=== PATIENT | male | born 1935 | race Caucasian/White ===

== ENCOUNTER 2018-10-02 22:59 | Inpatient (IN) | payer MEDICARE, OTHER ==
[~2018-10-02] VITALS: Ht 175.3 cm; Wt 84.2 kg
[2018-10-03] MEDS ORDERED: ONDANSETRON 4 MG INJ IV STA (00:23)
[2018-10-03] MEDS ORDERED: morphine 4 MG/ML VIAL IV STA (00:23)
[2018-10-03] MEDS ORDERED: SOD CHLORIDE 0.9% 500 ML IV STA (00:23)
[2018-10-03] MEDS ORDERED: CIPROFLOXACIN 400MG/D5W 200 ML IVPB STA (03:20)
[2018-10-03] MEDS ORDERED: metroNIDAZOLE 500 MG/NS (PMX) 100 ML IVPB STA (03:20)
--- NOTE | 2018-10-03 03:30 | ERD ---
ER Documentation Chief Complaint Chief Complaint VOMITING, DIARRHEA X'S 1 DAY HPI This is a very pleasant 83-year-old gentleman who had sudden onset of nausea vomiting and diarrhea that started noon. At first it was mainly diarrhea 4-5 episodes nonbloody. Then he started developing vomiting which is admitted with some blood streaks in it. No fevers no chills. No other current complaints. ROS All systems reviewed and are negative except as per history of present illness. Allergies Allergies: Coded Allergies: No Known Allergy (Unverified , 10/02/18) PMhx/Soc History of Surgery: No Anesthesia Reaction: No Hx Neurological Disorder: No Hx Respiratory Disorders: No Hx Cardiac Disorders: Yes (HTN) Hx Psychiatric Problems: No Hx Miscellaneous Medical Probl: No Hx Alcohol Use: No Hx Substance Use: No Hx Tobacco Use: No Smoking Status: Never smoker Physical Exam Vitals Vital Signs Date Temp Pulse Resp B/P (MAP) Pulse Ox O2 O2 Flow FiO2 Time Delivery Rate 10/03/18 86 14 118/54 96 Nasal 01:28 (75) Cannula 10/03/18 98.5 74 18 125/67 99 Room Air 00:36 (86) 10/02/18 97.4 79 18 143/97 94 23:09 (112) Physical Exam Const: No acute distress Head: Atraumatic Eyes: Normal Conjunctiva ENT: Normal External Ears, Nose and Mouth. Neck: Full range of motion. No meningismus. Resp: Clear to auscultation bilaterally Cardio: Regular rate and rhythm, no murmurs Abd: Soft, non tender, non distended. Normal bowel sounds Skin: No petechiae or rashes Back: No midline or flank tenderness Ext: No cyanosis, or edema Neur: Awake and alert Psych: Normal Mood and Affect Result Diagram: 10/03/18 0043 10/03/18 0043 Results 24 hrs Laboratory Tests Test 10/03/18 00:43 White Blood Count 19.8 10^3/ul Red Blood Count 4.36 10^6/ul Hemoglobin 14.0 g/dl Hematocrit 44.9 % Mean Corpuscular Volume 103.0 fl Mean Corpuscular Hemoglobin 32.1 pg Mean Corpuscular Hemoglobin Concent 31.2 g/dl Red Cell Distribution Width 13.8 % Platelet Count 191 10^3/UL Mean Platelet Volume 11.7 fl Immature Granulocytes % 0.400 % Neutrophils % 88.2 % Lymphocytes % 7.9 % Monocytes % 2.7 % Eosinophils % 0.5 % Basophils % 0.3 % Nucleated Red Blood Cells % 0.0 /100WBC Immature Granulocytes # 0.080 10^3/ul Neutrophils # 17.4 10^3/ul Lymphocytes # 1.6 10^3/ul Monocytes # 0.5 10^3/ul Eosinophils # 0.1 10^3/ul Basophils # 0.1 10^3/ul Nucleated Red Blood Cells # 0.0 10^3/ul Urine Color YELLOW Urine Clarity CLOUDY Urine pH 5.0 Urine Specific [place] 1.020 Urine Ketones NEGATIVE mg/dL Urine Nitrite NEGATIVE mg/dL Urine Bilirubin NEGATIVE mg/dL Urine Urobilinogen NEGATIVE mg/dL Urine Leukocyte Esterase NEGATIVE Louie/ul Urine Microscopic RBC 3 /HPF Urine Microscopic WBC 4 /HPF Urine Mucus FEW /HPF Urine Hemoglobin NEGATIVE mg/dL Urine Glucose NEGATIVE mg/dL Urine Total Protein 1+ mg/dl Sodium Level 144 mmol/L Potassium Level 4.3 mmol/L Chloride Level 107 mmol/L Carbon Dioxide Level 27 mmol/L Anion Gap 10 Blood Urea Nitrogen 28 mg/dl Creatinine 1.36 mg/dl Est Glomerular Filtrat Rate mL/min mL/min Glucose Level 145 mg/dl Calcium Level 9.9 mg/dl Total Bilirubin 0.6 mg/dl Direct Bilirubin 0.00 mg/dl Indirect Bilirubin 0.6 mg/dl Aspartate Amino Transf (AST/SGOT) 31 IU/L Alanine Aminotransferase (ALT/SGPT) 28 IU/L Alkaline Phosphatase 91 IU/L Troponin I < 0.012 ng/ml Total Protein 7.1 g/dl Albumin 4.3 g/dl Globulin 2.80 g/dl Albumin/Globulin Ratio 1.53 Lipase 37 U/L Current Medications Medications Dose Sig/[place] Start Time Status Last (Trade) Ordered Route PRN Stop Time Admin Dose Reason Admin Sodium 500 ml @ Q1H STAT 10/03/18 DC 10/03/18 Chloride 500 mls/hr IV 00:23 10/03/18 00:30 01:22 Morphine 4 mg ONCE STAT 10/03/18 DC 10/03/18 Sulfate IV 00:23 10/03/18 00:32 (morphine) 00:24 Ondansetron 4 mg ONCE STAT 10/03/18 DC 5/8/19 HCl (Zofran IV 00:23 10/03/18 00:32 Inj) 00:24 100 ml @ ONCE STAT 10/03/18 Metronidazole 100 mls/hr IVPB 03:20 10/03/18 04:19 200 ml @ ONCE STAT 10/03/18 Ciprofloxacin 200 mls/hr IVPB 03:20 10/03/18 / Dextrose 04:19 Procedures/MDM EKG: Rate/Rhythm: [Normal Sinus Rhythm] QRS, ST, T-waves: [No changes consistent w/ acute ischemia] Impression: [No evidence of ischemia or arrhythmia] Chest X-ray 1V Interpreted by me: Soft Tissue: No acute abnormalities Bones: No acute abnormalities Mediastinum/Cardiac Silhouette/Lungs: [No acute abnormalities] Medical decision making: This is an 83-year-old male comes in with complaints of nausea vomiting diarrhea. He has elevation of his white count. He likely has early diverticulitis. Given this is been started on intravenous Cipro and Flagyl. Patient will be admitted to hospitalist who kindly accepts patient to service. Departure Diagnosis: Primary Impression: Nausea, vomiting, and diarrhea Condition: Serious MOI ZURITA October 03, 2018 03:30
[2018-10-03] MEDS ORDERED: PARO-37 PO (03:50)
[2018-10-03] MEDS ORDERED: CLOP75TA28 PO (03:50)
[2018-10-03] MEDS ORDERED: ALLO300T2 PO (03:50)
[2018-10-03] MEDS ORDERED: POTA10TA18 PO (03:50)
[2018-10-03] MEDS ORDERED: DICL75TA2 PO (03:50)
[2018-10-03] MEDS ORDERED: ATOR10TA65 PO (03:50)
[2018-10-03] MEDS ORDERED: METO200T49 PO (03:50)
[2018-10-03] MEDS ORDERED: AMLO-356 PO (03:50)
[2018-10-03] MEDS ORDERED: TAMS-14 PO (03:50)
[2018-10-03] MEDS ORDERED: PANT40TA4 PO (03:50)
[2018-10-03] MEDS ORDERED: ACETAMINOPHEN 325 MG TAB PO PRN (06:00)
[2018-10-03] MEDS ORDERED: ALBUTEROL/IPRATROPIUM (NEB) 3 ML AMP HHN PRN (06:00)
[2018-10-03] MEDS ORDERED: ONDANSETRON 4 MG INJ IV PRN ×2 (06:00→14:30)
[2018-10-03] MEDS ORDERED: morphine 2 MG INJ IV PRN (06:00)
[2018-10-03] MEDS ORDERED: NACL 0.9% 3 ML SYG IV SCH (06:00)
[2018-10-03 06:30] VITALS: BP 109/53; PULSE 70; RESP 18
[2018-10-03 07:25] VITALS: BP 105/53; PULSE 63; RESP 18
--- NOTE | 2018-10-03 08:31 | HP ---
Date/Time of Note Date/Time of Note DATE: 10/03/18 TIME: 08:27 Assessment/Plan VTE Prophylaxis SCD applied (from Nsg): Yes Pharmacological prophylaxis: NA/contraindicated Pharm contraindication: other (Questionable hematemesis) Lines/Catheters IV Catheter Type (from Nrsg): Saline Lock Assessment/Plan Assessment/Plan 1. Gastroenteritis versus colitis/diverticulitis -Keep n.p.o. with IV fluid -Empiric IV antibiotic -Pain management 2. Presumed AMANUEL: Likely from diarrhea and vomiting -NS IVF for now 3. History of prostate surgery: Continue Flomax 4. Dyslipidemia: Continue statin when no longer n.p.o. 5. History of gout: Continue allopurinol when no longer n.p.o. Result Diagram: 10/03/184210/03/183 Results 24hrs Laboratory Tests Test 10/03/18 00:43 White Blood Count 19.8 H Red Blood Count 4.36 L Hemoglobin 14.0 Hematocrit 44.9 Mean Corpuscular Volume 103.0 H Mean Corpuscular Hemoglobin 32.1 Mean Corpuscular Hemoglobin Concent 31.2 L Red Cell Distribution Width 13.8 Platelet Count 191 Mean Platelet Volume 11.7 H Immature Granulocytes % 0.400 Neutrophils % 88.2 H Lymphocytes % 7.9 L Monocytes % 2.7 Eosinophils % 0.5 Basophils % 0.3 Nucleated Red Blood Cells % 0.0 Immature Granulocytes # 0.080 H Neutrophils # 17.4 H Lymphocytes # 1.6 Monocytes # 0.5 Eosinophils # 0.1 Basophils # 0.1 Nucleated Red Blood Cells # 0.0 Urine Color YELLOW Urine Clarity CLOUDY A Urine pH 5.0 Urine Specific [place] 1.020 Urine Ketones NEGATIVE Urine Nitrite NEGATIVE Urine Bilirubin NEGATIVE Urine Urobilinogen NEGATIVE Urine Leukocyte Esterase NEGATIVE Urine Microscopic RBC 3 Urine Microscopic WBC 4 Urine Mucus FEW A Urine Hemoglobin NEGATIVE Urine Glucose NEGATIVE Urine Total Protein 1+ H Sodium Level 144 Potassium Level 4.3 Chloride Level 107 Carbon Dioxide Level 27 Anion Gap 10 Blood Urea Nitrogen 28 H Creatinine 1.36 H Est Glomerular Filtrat Rate mL/min Glucose Level 145 Calcium Level 9.9 Total Bilirubin 0.6 Direct Bilirubin 0.00 Indirect Bilirubin 0.6 Aspartate Amino Transf (AST/SGOT) 31 Alanine Aminotransferase (ALT/SGPT) 28 Alkaline Phosphatase 91 Troponin I < 0.012 Total Protein 7.1 Albumin 4.3 Globulin 2.80 Albumin/Globulin Ratio 1.53 Lipase 37 HPI/ROS Admit Date/Time Admit Date/Time October 03, 2018 at 03:21 Hx of Present Illness Patient is an 83-year-old male with a history of hypertension, dyslipidemia, prostate surgery, gout who presents the ER complaining of abdominal pain and diarrhea. Pain is mainly localized in the epigastric area and the diarrhea is described as watery and nonbloody. He also reported generalized weakness. In the ER, vitals were stable. WBC almost 20,000. CT abdomen pelvis shows the followin. Possible mild emphysema. 2. Multiple clips and metallic densities are seen in the prostate base and bladder base. Question prior prostate cancer treatment. The prostate is somewhat enlarged with a course left paracentral calcification within. The urinary bladder wall is mildly prominent which may be due to under-distension. 3. Colonic diverticulosis without evidence of diverticulitis. No evidence for small bowel obstruction, free air, or abscess. PMH/Family/Social Past Medical History Medical History: other (See HPI) Medications Current Medications Dextrose/Sodium Chloride 1,000 ml @ 100 mls/hr Q10H IV ; Start 10/03/18 at 05:37 IV Flush (NS 3 ml) 3 ml PER PROTOCOL IV ; Start 10/03/18 at 06:00 Ondansetron HCl (Zofran Inj) 4 mg Q6H PRN IV NAUSEA/VOMITING; Start 10/03/18 at 06:00 Acetaminophen (Tylenol Tab) 650 mg Q6H PRN PO .PAIN 1-3 OR TEMP; Start 10/03/18 at 06:00 Morphine Sulfate (morphine) 2 mg Q4H PRN IV .SEVERE PAIN 7-10; Start 10/03/18 at 06:00 Famotidine (Pepcid Iv) 20 mg Q12 IV ; Start 10/03/18 at 09:00 Albuterol/ Ipratropium (Duoneb) 3 ml Q2H RESP THERAPY PRN HHN SHORTNESS OF YULISSA TH; Start 10/03/18 at 06:00 Tamsulosin HCl (Flomax) 0.4 mg QHS PO ; Start 10/03/18 at 21:00 Coded Allergies: No Known Allergy (Unverified , 10/02/18) Past Surgical History Past Surgical Hx: other (See HPI) Family History Significant Family History: no pertinent family hx Social History Alcohol Use: none Smoking Status: Never smoker Drug Use: none Exam/Review of Systems Vital Signs Vitals Vital Signs Date Temp Pulse Resp B/P (MAP) Pulse Ox O2 O2 Flow FiO2 Time Delivery Rate 10/03/18 98.2 63 18 105/53 96 07:25 (70) 10/03/18 Nasal 06:28 Cannula 10/03/18 2.0 04:00 Exam Constitutional: other (No acute distress) Head: normocephalic, atraumatic Eyes: EOMI Respiratory: clear to auscultation, normal air movement Cardiovascular: regular rate and rhythm, nl pulses Gastrointestinal: soft, non-tender Extremities: normal pulses MOI CONTRERAS MD October 03, 2018 08:31
[2018-10-03] MEDS: FAMOTIDINE 20 MG INJ IV SCH ×2 (08:43→20:13)
[2018-10-03] MEDS: DEXTROSE 5%-0.45% NACL 1,000 ML IV SCH ×2 (08:46→15:37)
[2018-10-03] MEDS: PIPER-TAZO 3.375 GM IV (PMX) 100 ML IVPB SCH ×2 (10:36→18:57)
[2018-10-03 13:27] VITALS: BP 116/56; PULSE 90; RESP 18
[2018-10-03] MEDS ORDERED: ALBUTEROL 0.083% (NEB) 2.5 MG/3 ML AMP HHN PRN (14:30)
[2018-10-03] MEDS ORDERED: PHENOL 1.4% SOLN 180 ML BTL MT PRN (14:30)
[2018-10-03] MEDS ORDERED: DIPHENHYDRAMINE 50 MG INJ IV PRN (14:30)
--- NOTE | 2018-10-03 15:51 | PN ---
Date/Time of Note Date/Time of Note DATE: 10/03/18 TIME: 15:48 Assessment/Plan VTE Prophylaxis SCD applied (from Nsg): Yes SCD contraindicated: low risk/ambulating Pharmacological prophylaxis: LMWH Lines/Catheters IV Catheter Type (from Nrsg): Peripheral IV Assessment/Plan Hospital Course A/P 1. Gastroenteritis/food poisoning vs diverticulitis, stable, try diet/antibiotics. 2. Chronic diverticulosis 3. Chronic cad/ age undetermined injury? Continue risk factor modification 4. Dyslipidemia 5. BPH? History of surgery stent placement 6. Gout 7. Emphysema? 8. Ho nephrolithiasis Subjective: Feels better. No further abdominal pain diarrhea. States he had some coleslaw that tasted funny recently. He is avoiding nuts and seeds. Past colonoscopies have shown diverticulosis. Objective: Vital signs stable Physical exam No pallor icterus adenopathy Regular Clear Bs+ nt nd no RRG No edema Result Diagram: 10/03/1815 10/03/18 0915 Results 24hrs Laboratory Tests Test 10/03/18 00:43 10/03/18 09:15 White Blood Count 19.8 H 14.6 #H Red Blood Count 4.36 L 3.63 L Hemoglobin 14.0 11.7 L Hematocrit 44.9 36.9 L Mean Corpuscular Volume 103.0 H 101.7 H Mean Corpuscular Hemoglobin 32.1 32.2 Mean Corpuscular Hemoglobin Concent 31.2 L 31.7 L Red Cell Distribution Width 13.8 14.1 Platelet Count 191 167 Mean Platelet Volume 11.7 H 11.2 H Immature Granulocytes % 0.400 0.300 Neutrophils % 88.2 H 81.5 H Lymphocytes % 7.9 L 9.8 L Monocytes % 2.7 8.2 Eosinophils % 0.5 0.1 Basophils % 0.3 0.1 Nucleated Red Blood Cells % 0.0 0.0 Immature Granulocytes # 0.080 H 0.050 H Neutrophils # 17.4 H 11.9 H Lymphocytes # 1.6 1.4 Monocytes # 0.5 1.2 H Eosinophils # 0.1 0.0 Basophils # 0.1 0.0 Nucleated Red Blood Cells # 0.0 0.0 Urine Color YELLOW Urine Clarity CLOUDY A Urine pH 5.0 Urine Specific [place] 1.020 Urine Ketones NEGATIVE Urine Nitrite NEGATIVE Urine Bilirubin NEGATIVE Urine Urobilinogen NEGATIVE Urine Leukocyte Esterase NEGATIVE Urine Microscopic RBC 3 Urine Microscopic WBC 4 Urine Mucus FEW A Urine Hemoglobin NEGATIVE Urine Glucose NEGATIVE Urine Total Protein 1+ H Sodium Level 144 144 Potassium Level 4.3 4.9 Chloride Level 107 111 H Carbon Dioxide Level 27 27 Anion Gap 10 6 Blood Urea Nitrogen 28 H 31 H Creatinine 1.36 H 1.22 Est Glomerular Filtrat Rate mL/min Glucose Level 145 117 Calcium Level 9.9 8.7 Total Bilirubin 0.6 0.6 Direct Bilirubin 0.00 0.00 Indirect Bilirubin 0.6 0.6 Aspartate Amino Transf (AST/SGOT) 31 32 Alanine Aminotransferase (ALT/SGPT) 28 30 Alkaline Phosphatase 91 71 Troponin I < 0.012 Total Protein 7.1 6.0 #L Albumin 4.3 3.3 # Globulin 2.80 2.70 Albumin/Globulin Ratio 1.53 1.22 Lipase 37 Exam/Review of Systems Exam Vitals Vital Signs Date Temp Pulse Resp B/P (MAP) Pulse Ox O2 O2 Flow FiO2 Time Delivery Rate 10/03/18 98.8 90 18 116/56 92 13:27 (76) 10/03/18 Nasal 06:28 Cannula 10/03/18 2.0 04:00 Results Results 24hrs Laboratory Tests Test 10/03/18 00:43 10/03/18 09:15 White Blood Count 19.8 H 14.6 #H Red Blood Count 4.36 L 3.63 L Hemoglobin 14.0 11.7 L Hematocrit 44.9 36.9 L Mean Corpuscular Volume 103.0 H 101.7 H Mean Corpuscular Hemoglobin 32.1 32.2 Mean Corpuscular Hemoglobin Concent 31.2 L 31.7 L Red Cell Distribution Width 13.8 14.1 Platelet Count 191 167 Mean Platelet Volume 11.7 H 11.2 H Immature Granulocytes % 0.400 0.300 Neutrophils % 88.2 H 81.5 H Lymphocytes % 7.9 L 9.8 L Monocytes % 2.7 8.2 Eosinophils % 0.5 0.1 Basophils % 0.3 0.1 Nucleated Red Blood Cells % 0.0 0.0 Immature Granulocytes # 0.080 H 0.050 H Neutrophils # 17.4 H 11.9 H Lymphocytes # 1.6 1.4 Monocytes # 0.5 1.2 H Eosinophils # 0.1 0.0 Basophils # 0.1 0.0 Nucleated Red Blood Cells # 0.0 0.0 Urine Color YELLOW Urine Clarity CLOUDY A Urine pH 5.0 Urine Specific [place] 1.020 Urine Ketones NEGATIVE Urine Nitrite NEGATIVE Urine Bilirubin NEGATIVE Urine Urobilinogen NEGATIVE Urine Leukocyte Esterase NEGATIVE Urine Microscopic RBC 3 Urine Microscopic WBC 4 Urine Mucus FEW A Urine Hemoglobin NEGATIVE Urine Glucose NEGATIVE Urine Total Protein 1+ H Sodium Level 144 144 Potassium Level 4.3 4.9 Chloride Level 107 111 H Carbon Dioxide Level 27 27 Anion Gap 10 6 Blood Urea Nitrogen 28 H 31 H Creatinine 1.36 H 1.22 Est Glomerular Filtrat Rate mL/min Glucose Level 145 117 Calcium Level 9.9 8.7 Total Bilirubin 0.6 0.6 Direct Bilirubin 0.00 0.00 Indirect Bilirubin 0.6 0.6 Aspartate Amino Transf (AST/SGOT) 31 32 Alanine Aminotransferase (ALT/SGPT) 28 30 Alkaline Phosphatase 91 71 Troponin I < 0.012 Total Protein 7.1 6.0 #L Albumin 4.3 3.3 # Globulin 2.80 2.70 Albumin/Globulin Ratio 1.53 1.22 Lipase 37 Medications Medication Current Medications Dextrose/Sodium Chloride 1,000 ml @ 100 mls/hr Q10H IV Last administered on 10/03/18at 08:46; Admin Dose 100 MLS/HR; Start 10/03/18 at 05:37 IV Flush (NS 3 ml) 3 ml PER PROTOCOL IV ; Start 10/03/18 at 06:00 Acetaminophen (Tylenol Tab) 650 mg Q6H PRN PO .PAIN 1-3 OR TEMP; Start 10/03/18 at 06:00 Morphine Sulfate (morphine) 2 mg Q4H PRN IV .SEVERE PAIN 7-10; Start 10/03/18 at 06:00 Famotidine (Pepcid Iv) 20 mg Q12 IV Last administered on 10/03/18at 08:43; Admin Dose 20 MG; Start 10/03/18 at 09:00 Albuterol/ Ipratropium (Duoneb) 3 ml Q2H RESP THERAPY PRN HHN SHORTNESS OF BREATH; Start 10/03/18 at 06:00 Tamsulosin HCl (Flomax) 0.4 mg QHS PO ; Start 10/03/18 at 21:00 Piperacillin Sod/ Tazobactam Sod 100 ml @ 25 mls/hr TID@02,10,18 IVPB Last administered on 10/03/18at 10:36; Admin Dose 25 MLS/HR; Start 10/03/18 at 10:00 Phenol (Chloraseptic Throat [place]) 2 spray Q2H PRN MT SORE THROAT; Start 10/03/18 at 14:30 Diphenhydramine HCl (Benadryl) 25 mg Q6H PRN IV ITCHING Last administered on 10/03/18at 14:26; Admin Dose 25 MG; Start 10/03/18 at 14:30 Ondansetron HCl (Zofran Inj) 4 mg Q4 PRN IV NAUSEA/VOMITING; Start 10/03/18 at 14:30 Enoxaparin Sodium (Lovenox) 30 mg DAILY SC ; Start 10/04/18 at 09:00 Albuterol (Proventil 0.083% (Neb)) 1.25 mg Q2H RESP THERAPY PRN HHN WHEEZING AND RESP DISTRESS; Start 10/03/18 at 14:30 GEGE JORDAN MD October 03, 2018 15:51
[2018-10-03 18:47] VITALS: Ht 175.3 cm; Wt 84.2 kg
[2018-10-03 19:18] VITALS: BP 126/60; PULSE 85; RESP 18
[2018-10-03] MEDS ORDERED: TAMSULOSIN (SR) 0.4 MG CAP PO SCH (21:00)
[2018-10-04] MEDS: DEXTROSE 5%-0.45% NACL 1,000 ML IV SCH ×2 (01:37→01:55)
[2018-10-04] MEDS: PIPER-TAZO 3.375 GM IV (PMX) 100 ML IVPB SCH (01:54)
[2018-10-04 02:07] VITALS: BP 124/64; PULSE 83; RESP 20
[2018-10-04 07:36] VITALS: BP 115/57; PULSE 89; RESP 19
--- NOTE | 2018-10-04 08:31 | DS ---
Date/Time of Note Date/Time of Note DATE: 10/04/18 TIME: 08:29 Discharge Summary Admission/Discharge Info Admit Date/Time October 03, 2018 at 03:21 Discharge Date/Time Patient Condition: Stable Procedures CT A/P IMPRESSION: 1. Possible mild emphysema. 2. Multiple clips and metallic densities are seen in the prostate base and bladder base. Question prior prostate cancer treatment. The prostate is somewhat enlarged with a course left paracentral calcification within. The urinary bladder wall is mildly prominent which may be due to under-distension. 3. Colonic diverticulosis without evidence of diverticulitis. No evidence for small bowel obstruction, free air, or abscess. Hx of Present Illness admit w colitis concern. Hospital Course Hospitalist Coverage/ H Course 1. Gastroenteritis/food poisoning vs diverticulitis, stable, dc home on antibiotics. 2. Chronic diverticulosis; ho colonoscopy 3. Chronic cad/ abn ekg/ age undetermined injury? Continue risk factor modification 4. Dyslipidemia 5. BPH? History of surgery stent placement 6. Gout 7. Emphysema? 8. Ho nephrolithiasis 9. Ho tia S: 10/03 Feels better. No further abd pain/ diarrhea. States he had some coleslaw that tasted funny recently. He is avoiding nuts and seeds. Past colonoscopies have shown diverticulosis. 10/04: better O: Vital signs stable PE No pallor icterus Regular Clear Bs+ nt nd no RRG No edema Home Meds Reported Medications Tamsulosin Hcl* (Flomax*) 0.4 Mg Cap.er.24h, 0.4 MG PO QHS for 30 Days, #30 10/03/18 Clopidogrel Bisulfate (Clopidogrel) 75 Mg Tablet, 75 MG PO DAILY for 30 Days, #30 TAKE 1 TABLET BY MOUTH EVERY DAY 10/03/18 Atorvastatin (Atorvastatin) 10 Mg Tablet, 10 MG PO QHS for 30 Days, #30 10/03/18 Paroxetine Hcl* (Paroxetine*) 20 Mg Tablet, 20 MG PO DAILY for 30 Days, #30 10/03/18 Potassium Citrate* (Potassium Citrate* ER) 10 Meq Tablet.sa, 10 MEQ PO DAILY for 30 Days 10/03/18 Pantoprazole* (Pantoprazole*) 40 Mg Tablet.dr, 40 MG PO DAILY for 30 Days, #30 TAKE 1 TABLET BY MOUTH EVERY DAY 10/03/18 Metoprolol Succinate* (Toprol XL*) 200 Mg Tab.sr.24h, 200 MG PO DAILY for 30 Days, #30 TAKE 1 TABLET BY MOUTH EVERY DAY 10/03/18 Allopurinol* (Allopurinol*) 300 Mg Tablet, 300 MG PO DAILY for 30 Days, #30 TAKE 1 TABLET BY MOUTH EVERY DAY 10/03/18 Amlodipine/Valsartan (Amlodipine-Valsartan 10-320 mg) 1 Each Tablet, 1 TAB PO DAILY for 30 Days, #30 TAKE 1 TABLETBY MOUTH EVERY DAY 10/03/18 Diclofenac Sodium* (Diclofenac Sodium*) 75 Mg Tablet.dr, 75 MG PO BID for 30 Days, #60 10/03/18 Primary Care Provider Not On Staff Doctor Time spent on discharge: > 30 minutes Pending Labs Laboratory Tests Test 10/03/18 09:15 10/04/18 04:29 10/04/18 04:30 10/04/18 04:50 White Blood 14.6 10.4 Count 10^3/ul (4.8-10 10^3/ul (4.8-1 .8) 0.8) Red Blood 3.63 3.50 Count 10^6/ul (4.70-6 10^6/ul (4.70- .10) 6.10) Hemoglobin 11.7 11.4 g/dl (14.0-18.0 g/dl (14.0-18. ) 0) Hematocrit 36.9 36.2 % (42.0-52.0) % (42.0-52.0) Mean 101.7 103.4 Corpuscular fl (82.0-101.0) fl (82.0-101.0 Volume ) Mean 32.2 32.6 Corpuscular pg (29.0-33.0) pg (29.0-33.0) Hemoglobin Mean 31.7 31.5 Corpuscular g/dl (32.0-37.0 g/dl (32.0-37. Hemoglobin Conc ) 0) ent Red Cell 14.1 14.4 Distribution % (11.5-14.5) % (11.5-14.5) Width Platelet Count 167 151 10^3/UL (140-41 10^3/UL (140-4 5) 15) Mean Platelet 11.2 11.5 Volume fl (7.4-10.4) fl (7.4-10.4) Immature 0.300 0.400 Granulocytes % % (0.001-0.429) % (0.001-0.429 ) Neutrophils % 81.5 63.5 % (39.0-77.0) % (39.0-77.0) Lymphocytes % 9.8 23.6 % (15.0-51.0) % (15.0-51.0) Monocytes % 8.2 9.7 % (0.0-11.0) % (0.0-11.0) Eosinophils % 0.1 % (0.0-7.0) 2.4 % (0.0-7.0) Basophils % 0.1 % (0.0-2.0) 0.4 % (0.0-2.0) Nucleated Red 0.0 0.0 Blood Cells % /100WBC (0.0-0. /100WBC (0.0-0 0) .0) Immature 0.050 0.040 Granulocytes # 10^3/ul (0.0-0. 10^3/ul (0.0-0 031) .031) Neutrophils # 11.9 6.6 10^3/ul (1.6-7. 10^3/ul (1.6-7 5) .5) Lymphocytes # 1.4 2.5 10^3/ul (0.8-2. 10^3/ul (0.8-2 9) .9) Monocytes # 1.2 1.0 10^3/ul (0.3-0. 10^3/ul (0.3-0 9) .9) Eosinophils # 0.0 0.3 10^3/ul (0.0-0. 10^3/ul (0.0-0 5) .5) Basophils # 0.0 0.0 10^3/ul (0.0-0. 10^3/ul (0.0-0 1) .1) Nucleated Red 0.0 0.0 Blood Cells # 10^3/ul (0.0-0. 10^3/ul (0.0-0 0) .0) Sodium Level 144 146 mmol/L (135-144 mmol/L (135-14 ) 4) Potassium 4.9 4.8 Level mmol/L (3.5-5.1 mmol/L (3.5-5. ) 1) Chloride Level 111 112 mmol/L (97-110) mmol/L (97-110 ) Carbon Dioxide 27 31 Level mmol/L (21-31) mmol/L (21-31) Anion Gap 6 (5-13) 3 (5-13) Blood Urea 31 mg/dl (7-20) 27 Nitrogen mg/dl (7-20) Creatinine 1.22 1.10 mg/dl (0.61-1.2 mg/dl (0.61-1. 4) 24) Est Glomerular mL/min (>60) mL/min (>60) Filtrat Rate mL/min Glucose Level 117 115 mg/dl (70-220) mg/dl (70-220) Calcium Level 8.7 9.4 mg/dl (8.4-10.2 mg/dl (8.4-10. ) 2) Total 0.6 0.3 Bilirubin mg/dl (0.2-1.3) mg/dl (0.2-1.3 ) Direct 0.00 0.00 Bilirubin mg/dl (0.00-0.2 mg/dl (0.00-0. 0) 20) Indirect 0.6 0.3 Bilirubin mg/dl (0-1.1) mg/dl (0-1.1) Aspartate Amino 32 IU/L (15-46) 36 Transf (AST/SGO IU/L (15-46) T) Alanine 30 IU/L (13-69) 39 Aminotransferas IU/L (13-69) e (ALT/SGPT) Alkaline 71 69 Phosphatase IU/L (42-121) IU/L (42-121) Total Protein 6.0 5.3 g/dl (6.1-8.1) g/dl (6.1-8.1) Albumin 3.3 3.1 g/dl (3.3-4.9) g/dl (3.3-4.9) Globulin 2.70 2.20 g/dl (1.3-3.2) g/dl (1.3-3.2) Albumin/Globuli 1.22 1.40 n Ratio Prothrombin 14.2 Time Sec (11.9-14.9 ) Prothrombin 1.1 Time Ratio INR 1.09 International Normalized Rati o Thyroid 2.200 Stimulating MIU/L (0.465-4 Hormone (TSH) .680) Hemoglobin A1c 5.7 % (0-5.9) Phosphorus 2.8 Level mg/dl (2.5-4.9 ) Magnesium 2.1 Level mg/dl (1.7-2.5 ) Troponin I < 0.012 ng/ml (0.000-0 .120) Lipase 32 U/L (23-300) Lactic Acid 1.2 Level mmol/L (0.5-2. 0) GEGE JORDAN MD October 04, 2018 08:31
--- NOTE | 2018-10-04 08:32 | PDOCDIS ---
Discharge Instructions CONDITION [id number] Patient Condition: [id number] Stable HOME CARE INSTRUCTIONS: [id number] Diet Instructions: [id number] Low Fat /Cholesterol ACTIVITY: [id number] Activity Restrictions: [id number] Slowly Increase Activity FOLLOW UP/APPOINTMENTS Follow-up Plan appt primary 1GEGE Lutz MD October 04, 2018 08:32
[2018-10-04] MEDS ORDERED: METR-122 PO (08:33)
[2018-10-04] MEDS ORDERED: ACET325T33 PO (08:33)
[2018-10-04] MEDS ORDERED: CIPR500T4 PO (08:33)
[2018-10-04] MEDS ORDERED: ENOXAPARIN 30 MG/0.3 ML SYG SC SCH (09:00)
[2018-10-04] MEDS ORDERED: CLOPIDOGREL 75 MG TAB PO SCH (09:00)
[2018-10-04] MEDS ORDERED: METOPROLOL (XL) 100 MG TAB PO SCH (09:00)
[2018-10-04] MEDS ORDERED: FAMOTIDINE 20 MG TAB PO SCH (09:13)
== END 2018-10-04 13:10 | disposition home or self-care (01) | DRG 392 ==
LOC: E/R 22:59 → MS1 10-03 03:21
PROVIDERS: ADMIT Internal Medicine; ATTEND Internal Medicine
DX: K57.90 Diverticulosis of intestine, part unspecified, without perforation or abscess without bleeding (principal); J43.9 Emphysema, unspecified; E78.5 Hyperlipidemia, unspecified; N40.0 Benign prostatic hyperplasia without lower urinary tract symptoms
CPT/HCPCS: 36415; 71045; 74176; 80053; 81001; 83036; 83605; 83690; 83735; 84100; 84443; 84484; 85025; 85610; 93005; 96374; 96375; J0744; J1200; J1650; J2270; J2405; J2543; J7040; J7042